=== PATIENT | male | born 1975 | race Hispanic/Latino ===

== ENCOUNTER 2018-08-28 22:44 | Emergency (ER) | payer SELFPAY ==
[~2018-08-28] VITALS: Ht 162.6 cm; Wt 67.8 kg
[2018-08-29 00:13] VITALS: BP 123/71
== END 2018-08-29 | disposition home or self-care (01) | DRG 395 ==
LOC: ED 22:44
DX: K40.90 Unilateral inguinal hernia, without obstruction or gangrene, not specified as recurrent (principal)

== ENCOUNTER → 2018-09-11 | Outpatient (REF) | payer SELFPAY ==
[~2018-09-11] MED LIST: TYLENOL 500MG TAB PO
[2018-09-11 11:07] VITALS: BP 112/59
== END | disposition home or self-care (01) | DRG 395 ==
LOC: EDBD 10:46 → BADA 10:46
PROVIDERS: ATTEND Surgery
DX: K40.90 Unilateral inguinal hernia, without obstruction or gangrene, not specified as recurrent (principal); R10.31 Right lower quadrant pain

== ENCOUNTER → 2018-09-21 | Outpatient (REF) | payer SELFPAY ==
[2018-09-21 11:17] VITALS: BP 122/70
== END | disposition home or self-care (01) | DRG 951 ==
LOC: PO 10:52 → EDBD 10:52 → ORM 11:00
PROVIDERS: ATTEND Surgery
DX: Z01.818 Encounter for other preprocedural examination (principal); K40.90 Unilateral inguinal hernia, without obstruction or gangrene, not specified as recurrent

== ENCOUNTER 2018-09-25 08:42 | Day surgery (SDC) | payer SELFPAY ==
[2018-09-25 11:22] VITALS: BP 117/70
== END 2018-09-25 11:50 | disposition home or self-care (01) | DRG 352 ==
LOC: ORM 08:42 → EDBD 12:15 → ORM 12:15
PROVIDERS: ATTEND Surgery
PROC: 0YU50JZ Supplement Right Inguinal Region with Synthetic Substitute, Open Approach (ICD-10-PCS; principal; 2018-09-25)
DX: K40.90 Unilateral inguinal hernia, without obstruction or gangrene, not specified as recurrent (principal)
CPT/HCPCS: C9290; J0131